=== PATIENT | male | born 1975 | race Caucasian/White ===

== ENCOUNTER 2025-03-19 06:19 | Day surgery (SDC) | payer BC, SELFPAY | END 2025-03-19 09:38 | disposition home or self-care (01) | LOC: GI 06:19 | PROVIDERS: ATTENDING PHYSICIAN Internal Medicine | DX: Z12.11 Encounter for screening for malignant neoplasm of colon (principal); K64.8 Other hemorrhoids; K57.30 Diverticulosis of large intestine without perforation or abscess without bleeding; D12.4 Benign neoplasm of descending colon; Z80.0 Family history of malignant neoplasm of digestive organs | CPT/HCPCS: 45380; 88305 ==